=== PATIENT | male | born 1960 | race Caucasian/White ===

== ENCOUNTER 2019-07-05 21:53 | Emergency (ER) | payer OTHER ==
[~2019-07-05] VITALS: Ht 167.6 cm; Wt 79.4 kg
[~2019-07-05 21:53] MED LIST: KEF500 PO; L40 PO; LOT20 PO; NOR10 PO; PRA20 PO
[2019-07-05 22:04] VITALS: Ht 167.6 cm; Wt 79.4 kg
[2019-07-06 01:15] LABS: BASOPHIL % 0.3 % (0-2); PLATELET COUNT 163 x10^3mcL (130-400)
[2019-07-06 01:42] LABS: ALBUMIN 3.5 g/dL (3.4-5.0); ALKALINE PHOSPHATASE 88 U/L (46-116); ALT/SGPT 27 U/L (16-63); AST/SGOT 15 U/L (15-37); BILIRUBIN TOTAL 0.8 mg/dL (0.20-1.00); CALCIUM 8.7 mg/dL (8.5-10.1); CHLORIDE SERUM 101 mmol/L (98-107); CREATININE SERUM 0.9 mg/dL (0.7-1.3); GFR1 > 60 mL/min; GLUCOSE SERUM 253 mg/dL (74-106); LIPASE 126 IU/L (73-393); SODIUM SERUM 139 mmol/L (136-145); TOTAL PROTEIN, SERUM 8.2 g/dL (6.4-8.2)
[2019-07-06 02:01] LABS: POTASSIUM SERUM 2.9 mmol/L (3.5-5.1)
[2019-07-06 06:09] VITALS: BP 165/80
== END 2019-07-06 06:10 | disposition home or self-care (01) ==
LOC: ED 21:53
DX: R10.13 Epigastric pain (principal); I10 Essential (primary) hypertension; E11.9 Type 2 diabetes mellitus without complications; E78.00 Pure hypercholesterolemia, unspecified
CPT/HCPCS: 36415